=== PATIENT | male | born 1985 | race African-American/Black ===

== ENCOUNTER 2018-03-28 23:45 | Emergency (ER) | payer OTHER ==
[~2018-03-28] VITALS: Ht 172.7 cm; Wt 99.8 kg
--- NOTE | ~2018-03-28 | EKG ---
[place] [address] 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 : 1985 Requested By: Riley Sheldon Order Number: [id number] MD: Jared Harden Measurements Intervals [place] Rate: 90 P: 19 VT: 157 QRS: 65 QRSD: 83 T: -37 QT: 362 QTc: 443 Interpretive Statements Sinus rhythm Probable left atrial enlargement Abnrm T, diffuse leads Compared to ECG 03/12/2018 22:09:06 No significant change was found Electronically Signed On 03-29-2018 8:47:43 CDT by Jared Harden [email or web address] <ELECTRONICALLY SIGNED> By: Jared Harden MD, [facility] 03/29/18 0847 51 51 Jared Harden MD, [facility] /EPI
[~2018-03-28 23:45] MED LIST: ANTIVERT25 MG PO; ASPIRIN EC81 M1 PO; ATIVAN0.5 MG; ATIVAN0.5 MG PO; ATIVAN1 MG PO; HYDROXYZINE HCL50 MG PO; IBUPROFEN 800800 M1 PO; LOPRESSOR25 PO; NORCO 5-325 TA1 EACH PO; XANAX 1 MG TABLE1 MG PO
[2018-03-29] MEDS ORDERED: AMOXICILLIN 50500 MG PO (00:14)
[2018-03-29] MEDS ORDERED: FLONASE 0.05%50 MCG NASAL (00:15)
[2018-03-29 00:28] LABS: HEMATOCRIT 45.4 % (42.0-52.0); MCH 30.1 pg (26.0-34.0); MCHC 35.2 g/dL (28.0-37.0); MCV 85.5 fL (80.0-100.0); PLATELET COUNT 236 thou/uL (150-400); RBC 5.31 mil/uL (4.50-6.00); RDW 13.4 % (10.5-14.5); WBC 8.6 thou/uL (4.0-11.0)
[2018-03-29 00:39] LABS: ANION GAP 5 mmol/L (7-16); BUN 14 mg/dL (7-18); CALCIUM 9.6 mg/dL (8.5-10.1); CHLORIDE 98 mmol/L (98-107); CO2 28 mmol/L (21-32); CREATININE 1.4 mg/dL (0.7-1.3); GLUCOSE 113 mg/dL (74-106); POTASSIUM 4.1 mmol/L (3.5-5.1); SODIUM 131 mmol/L (136-145)
[2018-03-29 00:50] LABS: ALBUMIN 3.7 g/dL (3.4-5.0); SGPT 89 U/L (30-65); TOTAL PROTEIN 8.6 g/dL (6.4-8.2); TROPONIN-I <0.06 ng/mL (<0.06)
[2018-03-29 00:55] LABS: ABSOLUTE NEUTROPHILS 4.5 thou/uL (1.4-8.2); ATYPICAL LYMPHS 1 %
[2018-03-29 01:21] LABS: SGOT 65 U/L (15-37)
[2018-03-29 03:17] VITALS: BP 130/79
== END 2018-03-29 03:15 | disposition home or self-care (01) ==
LOC: ER 23:45
PROVIDERS: Emergency Medicine
DX: R07.9 Chest pain, unspecified (principal); R06.02 Shortness of breath; F41.9 Anxiety disorder, unspecified; I10 Essential (primary) hypertension; Z87.891 Personal history of nicotine dependence

== ENCOUNTER 2018-03-30 11:58 | Emergency (ER) | payer OTHER ==
[~2018-03-30] VITALS: Ht 172.7 cm; Wt 99.8 kg
[~2018-03-30 11:58] MED LIST changes: +AMOXICILLIN 50500 MG PO; +FLONASE 0.05%50 MCG NASAL
[2018-03-30 12:49] LABS: ABSOLUTE NEUTROPHILS 4.1 thou/uL (1.4-8.2); BASOPHILS 0.3 % (0.0-2.0); EOSINOPHILS 3.6 % (0.0-3.0); HEMATOCRIT 47.4 % (42.0-52.0); HEMOGLOBIN 16.7 gm/dL (14.0-18.0); LYMPHOCYTES 26.1 % (24.0-44.0); MCH 30.4 pg (26.0-34.0); MCHC 35.2 g/dL (28.0-37.0); MCV 86.2 fL (80.0-100.0); PLATELET COUNT 221 thou/uL (150-400); RBC 5.49 mil/uL (4.50-6.00); RDW 13.3 % (10.5-14.5); WBC 6.8 thou/uL (4.0-11.0)
[2018-03-30 13:38] LABS: CALCIUM 8.5 mg/dL (8.5-10.1); CREATININE 1.3 mg/dL (0.7-1.3); POTASSIUM 3.8 mmol/L (3.5-5.1)
[2018-03-30 16:04] VITALS: BP 129/78
[2018-03-31 07:10] LABS: HIV ANTIBODY Non Reactive (Non Reactive)
== END 2018-03-30 16:06 | disposition home or self-care (01) ==
LOC: ER 11:58
PROVIDERS: Student in an Organized Health Care Education/Training Program
DX: R51 Headache (principal); H53.8 Other visual disturbances; F41.9 Anxiety disorder, unspecified; Z87.891 Personal history of nicotine dependence

== ENCOUNTER 2020-05-13 15:39 | Emergency (ER) | payer OTHER ==
[~2020-05-13] VITALS: Ht 172.7 cm; Wt 95.3 kg
[~2020-05-13 15:39] MED LIST changes: +PEPCID20 MG PO
[2020-05-13 16:09] LABS: ABSOLUTE NEUTROPHILS 5.8 thou/uL (1.4-8.2); BASOPHILS 0.3 % (0.0-2.0); HEMATOCRIT 47.7 % (42.0-52.0); HEMOGLOBIN 15.9 gm/dL (14.0-18.0); MCH 29.6 pg (26.0-34.0); MCHC 33.3 g/dL (28.0-37.0); MCV 89.1 fL (80.0-100.0); MONOCYTES 7.8 % (1.0-8.0); PLATELET COUNT 230 thou/uL (150-400); POLYS 71.9 % (36.0-66.0); RBC 5.36 mil/uL (4.50-6.00); RDW 13.5 % (10.5-14.5); WBC 8.1 thou/uL (4.0-11.0)
[2020-05-13 16:14] LABS: CALCIUM 9.2 mg/dL (8.5-10.1); CREATININE 1.4 mg/dL (0.7-1.3)
[2020-05-13 16:20] LABS: ALBUMIN 3.7 g/dL (3.4-5.0); TOTAL BILIRUBIN 1.2 mg/dL (0.2-1.0)
[2020-05-13] MEDS ORDERED: OMEPRAZOLE 20 M20 M1 PO (17:37)
[2020-05-13] MEDS ORDERED: CARAFATE 1 GM TA1 G1 PO (17:37)
[2020-05-13 17:57] VITALS: BP 148/93
== END 2020-05-13 17:57 | disposition home or self-care (01) ==
LOC: ER 15:39
PROVIDERS: Physician Assistant
DX: K29.70 Gastritis, unspecified, without bleeding (principal); Z87.891 Personal history of nicotine dependence; Z79.899 Other long term (current) drug therapy

== ENCOUNTER 2021-05-16 16:08 | Emergency (ER) | payer OTHER ==
[~2021-05-16] VITALS: Ht 172.7 cm; Wt 95.3 kg
--- NOTE | ~2021-05-16 | EKG ---
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
[~2021-05-16 16:08] MED LIST changes: +CARAFATE 1 GM TA1 G1 PO; +OMEPRAZOLE 20 M20 M1 PO
[2021-05-16 16:47] LABS: ABSOLUTE NEUTROPHILS 5.3 thou/uL (1.4-8.2); BASOPHILS 0.8 % (0.0-2.0); EOSINOPHILS 1.6 % (0.0-3.0); HEMATOCRIT 48.9 % (42.0-52.0); HEMOGLOBIN 16.4 gm/dL (14.0-18.0); LYMPHOCYTES 19.2 % (24.0-44.0); MCH 29.7 pg (26.0-34.0); MCHC 33.5 g/dL (28.0-37.0); MCV 88.6 fL (80.0-100.0); MONOCYTES 8.2 % (1.0-8.0); PLATELET COUNT 233 thou/uL (150-400); POLYS 70.2 % (36.0-66.0); RBC 5.52 mil/uL (4.50-6.00); RDW 13.7 % (10.5-14.5); WBC 7.5 thou/uL (4.0-11.0)
[2021-05-16 17:01] LABS: CALCIUM 9.3 mg/dL (8.5-10.1); CREATININE 1.4 mg/dL (0.7-1.3); POTASSIUM 4.4 mmol/L (3.5-5.1)
[2021-05-16 19:54] VITALS: BP 155/104
--- NOTE | 2021-05-17 07:06 | EKG ---
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 : 1985 Requested By: Rafael Oseguera Order Number: [id number] MD: Shon Snyder Measurements Intervals [place] Rate: 87 P: 16 SD: 148 QRS: 74 QRSD: 74 T: -31 QT: 366 QTc: 441 Interpretive Statements Sinus rhythm Probable left atrial enlargement Abnormal T, consider ischemia, diffuse leads Baseline wander in lead(s) II,III,aVF Compared to ECG 05/15/2018 18:31:30 Possible ischemia now present Early repolarization no longer present Electronically Signed On 05-17-2021 7:06:34 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
--- NOTE | 2021-05-17 07:07 | EKG ---
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: BAMBI : 1985 Requested By: Rafael Oseguera Order Number: [id number] MD: Shon Snyder Measurements Intervals [place] Rate: 90 P: 18 MI: 149 QRS: 71 QRSD: 75 T: -47 QT: 371 QTc: 454 Interpretive Statements Sinus rhythm Probable left atrial enlargement Abnormal T, consider ischemia, diffuse leads Minimal ST elevation, lateral leads Compared to ECG 05/16/2021 16:16:46 No significant changes Electronically Signed On 05-17-2021 7:07:11 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
== END 2021-05-16 19:55 | disposition home or self-care (01) ==
LOC: ER 16:08
PROVIDERS: Student in an Organized Health Care Education/Training Program
DX: R07.89 Other chest pain (principal); F41.9 Anxiety disorder, unspecified; Z79.899 Other long term (current) drug therapy; Z87.891 Personal history of nicotine dependence